=== PATIENT | male | born 1945 ===

== ENCOUNTER 2025-03-02 09:42 | Outpatient (CLI) | payer MEDICARE, SELFPAY | END 2025-03-02 09:43 | disposition home or self-care (01) | PROVIDERS: Visit Provider Family Medicine | DX: E78.5 Hyperlipidemia, unspecified (principal); F03.A0 Unspecified dementia, mild, without behavioral disturbance, psychotic disturbance, mood disturbance, and anxiety | CPT/HCPCS: 80061; 82607; 84443 ==